=== PATIENT | male | born 1990 | race Caucasian/White ===

== ENCOUNTER 2023-06-20 00:29 | Emergency (ER) | payer BC, OTHER ==
[~2023-06-20] VITALS: Ht 180.3 cm; Wt 81.6 kg
[2023-06-20 01:21] VITALS: BP_SYST 120; PULSE 72; RESP 18; TEMP 98.5; O2SAT 97
[2023-06-20 01:52] LABS: COVID19 ANTIGEN SOFIA FIA NEGATIVE (NEGATIVE)
[2023-06-20 02:28] LABS: INFLUENZA TYPE A NEGATIVE (NEGATIVE); INFLUENZA TYPE B NEGATIVE (NEGATIVE)
[2023-06-20] MEDS ORDERED: MED4 PO (03:23)
== END 2023-06-20 03:32 | disposition home or self-care (01) ==
LOC: SED 00:29
DX: J06.9 Acute upper respiratory infection, unspecified (principal); R05.9 Cough, unspecified; R09.81 Nasal congestion; Z79.899 Other long term (current) drug therapy; Z20.822 Contact with and (suspected) exposure to COVID-19
CPT/HCPCS: 36415; 99283